=== PATIENT | male | born 1965 | race African-American/Black ===

== ENCOUNTER 2018-05-18 17:59 | Emergency (ER) | payer OTHER ==
[~2018-05-18] VITALS: Ht 175.3 cm; Wt 90.7 kg
[2018-05-18] MEDS ORDERED: RISPERDAL3 MG PO (18:11)
[2018-05-18 18:15] VITALS: BP 151/95
--- NOTE | 2018-05-18 18:15 | NUR ---
ED Nurse Note: patient walked into ED from home c/o right upper thigh pain x 3 days , does not radiate, the pain is local. patient denies any injuries.
--- NOTE | 2018-05-18 19:08 | NUR ---
HAND-OFF: Report given to Jerad LEONARD. patient is stable in bed, receiving venous duplex
--- NOTE | 2018-05-18 19:22 | Emergency Room Report ---
History of Present Illness General Chief Complaint: Pain Source: Patient Present Illness HPI 52-year-old male presents to the emergency department complaining of 10 out of 10 in severity pain to the right thigh 1 week. Patient denies appreciable trauma or fall. Patient reports side of his pain when he awoke. Patient denies open wounds, erythema, warmth, swollen tender lymph nodes. Patient denies swelling in that area. Denies numbness tingling or loss of sensation or gross motor movements of the extremities, incontinence of bowel or bladder. Denies CP, Palpitations, LOC, AMS, dizziness, Changes in Vision, weakness or a sudden severe headache. Denies neck or back pain. denies constipation, diarrhea , testicular pain or tenderness. Allergies: Coded Allergies: No Known Allergies (Unverified , 05/18/18) Patient History Past Medical History: see triage record Past Surgical History: none Pertinent Family History: none Reviewed Nursing Documentation: PMH: Agreed; PSxH: Agreed Nursing Documentation-PMH Past Medical History: No History, Except For Review of Systems All Other Systems: negative except mentioned in HPI Physical Exam Vital Signs Date Time Temp Pulse Resp B/P (MAP) Pulse Ox O2 Delivery O2 Flow Rate FiO2 05/18/18 18:08 98.1 79 16 151/95 98 Room Air Sp02 EP Interpretation: reviewed, normal General Appearance: no apparent distress, alert, GCS 15, non-toxic Head: normocephalic, atraumatic Eyes: bilateral eye normal inspection, bilateral eye PERRL ENT: hearing grossly normal, normal voice Neck: full range of motion Respiratory: lungs clear, normal breath sounds, speaking full sentences Cardiovascular #1: regular rate, rhythm Musculoskeletal: back normal, normal range of motion, tender - medial right thigh ttp and posterior right knee ttp, FROM with pain, no erythema, warmth, swelling or obvious deformity. no midling spinal tenderness or tenderness of the Hip. Neurologic: alert, oriented x3, responsive, motor strength/tone normal, sensory intact, speech normal, grossly normal Psychiatric: judgement/insight normal Skin: normal color, no rash, warm/dry, well hydrated Lymphatic: no adenopathy Medical Decision Making PA Attestation Dr. Franks is my supervising Physician whom patient management has been discussed with. Diagnostic Impression: Primary Impression: Muscle strain of right thigh Qualified Codes: S76.911A - Strain of unspecified muscles, fascia and tendons at thigh level, right thigh, initial encounter ER Course 52-year-old male presents to the emergency department complaining of 10 out of 10 in severity pain to the right thigh 1 week. Patient denies appreciable trauma or fall. Patient reports side of his pain when he awoke. Patient denies open wounds, erythema, warmth, swollen tender lymph nodes. Patient denies swelling in that area. Denies numbness tingling or loss of sensation or gross motor movements of the extremities, incontinence of bowel or bladder. Denies CP, Palpitations, LOC, AMS, dizziness, Changes in Vision, weakness or a sudden severe headache. Denies neck or back pain. denies constipation, diarrhea , testicular pain or tenderness. Ddx considered but are not limited to Fracture, dislocation, contusion, Sprain/ Strain/Spasm, DVT. Vital signs: are WNL, pt. is afebrile H&PE are most consistent with musculoskeletal injury will perform imaging to r/ o fractures/dislocations. ORDERS: - venous duplex ultrasound of the right lower extremity: No Acute DVT ED INTERVENTIONS: - Soma PO -I do not identify an emergent condition at this time. With current presentation , pt. is stable for close outpatient follow up and conservative treatment. D/ w pt. to return promptly to ED with worsening or new symptoms.- Pt. verbalizes' understanding and agreement with proposed treatment plan.proposed treatment plan. DISCHARGE: At this time pt. is stable for d/c to home. Will provide printed patient care instructions, and any necessary prescriptions. Care plan and follow up instructions have been discussed with the patient prior to discharge. CT/MRI/US Diagnostic Results CT/MRI/US Diagnostic Results : Imaging Test Ordered: Right LE Duplex US Impression Negative for acute DVT.Per official radiology report- Please see report for specific details. Last Vital Signs Date Time Temp Pulse Resp B/P (MAP) Pulse Ox O2 Delivery O2 Flow Rate FiO2 05/18/18 18:15 98.1 79 16 151/95 98 Room Air Status: improved Disposition: HOME, SELF-CARE Condition: Stable Scripts Acetaminophen* (TYLENOL EXTRA STRENGTH*) 500 Mg Tablet 500 MG ORAL Q6H, #20 TAB 0 Refills Prov: Tatiana Hernandez 05/18/18 Methocarbamol* (ROBAXIN-750*) 750 Mg Tablet 750 MG PO QID for 7 Days, #28 TAB 0 Refills Prov: Tatiana Hernandez 05/18/18 Referrals: NON PHYSICIAN (PCP) Patient Instructions: Muscle Pain, Adult, Muscle Strain, [id number] Additional Instructions: Take medications as directed. Follow up with a Primary Care Provider in 3-5 days, even if your symptoms have resolved. --Please review list of primary care clinics, if you do not already have a primary care provider Return sooner to ED if new symptoms occur, or current symptoms become worse. Do not drink alcohol, drive, or operate heavy machinery while taking Robaxin ( Muscle Relaxers) as this may cause drowsiness. - Please note that this Emergency Department Report was dictated using [employer] specialist technology software, occasionally this can lead to erroneous entry secondary to interpretation by the dictation equipment. Tatiana Hernandez May 18, 2018 19:22
[2018-05-18] MEDS ORDERED: TYLENOL EXTRA500 MG ORAL (19:50)
[2018-05-18] MEDS ORDERED: ROBAXIN-750750 MG PO (19:50)
[2018-05-18 20:00] VITALS: BP 140/82
--- NOTE | 2018-05-18 20:00 | NUR ---
ED Nurse Note: Pt claered DC by IVONNE. Pt is AO x 4times, VSS, on room air no distress. ID bend removed. Belongings given back to Pt. DC and Meds instructions given to Pt, Pt understood well. Pt walked out unit with cruthes. Pt will ask his friend to pick him up.
--- NOTE | 2018-05-19 09:13 | Diagnostic Imaging Report ---
Indication: Right lower extremity pain and swelling. Technique: Duplex Doppler imaging performed from the right common femoral vein to the popliteal vein. FINDINGS: Normal compressibility demonstrated from the common femoral vein to the popliteal vein. Respiratory phasicity and good augmentation demonstrated on waveform analysis. There is no evidence of thrombosis. IMPRESSION: No evidence of deep venous thrombosis within the right lower extremity.
== END 2018-05-18 20:00 | disposition home or self-care (01) ==
LOC: EMR 19:03
DX: S76.911A Strain of unspecified muscles, fascia and tendons at thigh level, right thigh, initial encounter (principal); X58.XXXA Exposure to other specified factors, initial encounter; Y92.009 Unspecified place in unspecified non-institutional (private) residence as the place of occurrence of the external cause; M79.89 Other specified soft tissue disorders
CPT/HCPCS: 93971; 99284